=== PATIENT | male | born 1985 ===

== ENCOUNTER → 2023-08-27 08:33 | Outpatient (CLI) | payer OTHER ==
[2023-08-27 18:36] LABS: CREATININE SERUM 0.98 mg/dL (0.70-1.30); GFR 85.15
[2023-08-27 18:37] LABS: BILIRUBIN TOTAL 0.82 mg/dL (0.3-1.2); CALCIUM 9.3 mg/dL (8.5-10.1); GLOBULINA 3.9 G/DL (2.4-3.5); POTASSIUM 4.51 mEq/L (3.5-5.1); TOTAL PROTEIN 7.9 gm/dL (6.4-8.2)
== END | disposition home or self-care (01) ==
LOC: LAB 08:33
PROVIDERS: ATTEND Student in an Organized Health Care Education/Training Program
DX: Z40.8 Encounter for other prophylactic surgery (principal)